=== PATIENT | male | born 1975 | race Caucasian/White ===

== ENCOUNTER 2017-05-03 09:52 | Emergency (ER) | payer BC ==
[~2017-05-03] VITALS: Ht 167.6 cm; Wt 93.0 kg
[2017-05-03 09:55] VITALS: Ht 167.6 cm; Wt 93.0 kg
--- NOTE | 2017-05-03 10:56 | RADRPT ---
PROCEDURE: XR Chest. CLINICAL INDICATION: chest pain TECHNIQUE: Single frontal view of the chest was obtained COMPARISON: None FINDINGS: The heart and mediastinum are within normal limits. The lungs are clear. There is no pleural effusion or pneumothorax. RPTAT: AA IMPRESSION: No acute disease. .Minh Chavez MD, Date Time Electronically viewed and signed by .Minh Chavez MD, on 05/03/2017 10:56 .S/
--- NOTE | 2017-05-03 11:57 | RADRPT ---
PROCEDURE: XR Ankle. CLINICAL INDICATION: Right ankle pain following injury TECHNIQUE: 3 views of the right ankle are available for review COMPARISON: None available FINDINGS: The osseous structures demonstrate normal alignment and mineralization. No acute fracture or disloc ation is seen. The ankle mortise is intact. No periostitis or osteochondral lesion is identified. No significant soft tissue abnormality is seen. IMPRESSION: Unremarkable right ankle x-ray series. RPTAT: HH .Cecile Nam MD, MD Date Time Electronically viewed and signed by .Cecile Nam MD, on 05/03/2017 11:57 .G/
[2017-05-03] MEDS ORDERED: IBUPROFEN 800 MG TAB PO STA (11:58)
[2017-05-03] MEDS ORDERED: IBUP-1542 PO (12:21)
--- NOTE | 2017-05-03 12:35 | ERD ---
ER Documentation Chief Complaint Date/Time DATE: 05/03/17 TIME: 12:33 Chief Complaint Complains of ankle pain after a fall HPI 41-year-old male presenting to the emergency department complaining of moderate achy right ankle pain status post level fall and inversion mechanism injury that occurred yesterday. Patient states that he had also landed on his right lower lip. He denies any chest pain or shortness of breath. He denies taking any medications for this ROS All systems reviewed and are negative except as per history of present illness. Medications Home Meds Active Scripts Ibuprofen* (Motrin*) 600 Mg Tab, 600 MG PO Q6H Y for PAIN AND OR ELEVATED TEMP, #30 TAB Prov:JATIN ORTIZ PA-C 05/03/17 Allergies Allergies: Coded Allergies: No Known Allergy (Unverified , 05/03/17) Physical Exam Vitals Vital Signs Date Time Temp Pulse Resp B/P Pulse Ox O2 Delivery O2 Flow Rate FiO2 05/03/17 09:55 98.4 70 20 122/76 97 Physical Exam Const: NAD Head: Atraumatic Eyes: Normal Conjunctiva ENT: Normal External Ears, Nose and Mouth. Neck: Full range of motion..~ No meningismus. Resp: Clear to auscultation bilaterally Cardio: Regular rate and rhythm, no murmurs Abd: Soft, non tender, non distended. Normal bowel sounds Skin: No petechiae or rashes Back: No midline or flank tenderness Ext: TTP on the right ankle, no swelling noted Neur: Awake and alert Psych: Normal Mood and Affect Results 24 hrs Current Medications Medications (Trade) Dose Ordered Sig/Alfredo Route PRN Reason Start Time Stop Time Status Last Admin Dose Admin Ibuprofen (Motrin) 800 mg ONCE STAT PO 05/03/17 11:58 05/03/17 12:00 DC 05/03/17 12:05 Procedures/MDM Is a 41-year-old male presenting to the emergency department complaining of right ankle pain status post ground level fall that occurred yesterday. Patient likely has an ankle sprain, there is no evidence of fracture dislocation. Patient had no neuro deficits. Patient was placed in Ankush bandage and was given crutches. Discussed to return to the ER for any worsening symptoms. He understands and agrees with this plan The ankle did not show fracture dislocation, chest x-ray did not show any evidence of infiltrates, pneumothorax pleural effusion or rib fracture Departure Diagnosis: Primary Impression: Ankle sprain Condition: Stable Patient Instructions: Treating Ankle Sprains, Self-Care for Strains and Sprains Additional Instructions: FOLLOW UP WITH YOUR PRIMARY CARE PHYSICIAN TOMORROW.Return to this facility if you are not improving as expected. Take all medicines as directed. Return to this facility if you are not improving as expected. JATIN ORTIZ PA-C May 03, 2017 12:35
[2017-05-03 12:57] VITALS: BP 121/70; PULSE 79; RESP 18; TEMP 98
== END 2017-05-03 12:58 | disposition home or self-care (01) ==
LOC: FTE 09:52
DX: S93.401A Sprain of unspecified ligament of right ankle, initial encounter (principal); R07.9 Chest pain, unspecified; W18.39XA Other fall on same level, initial encounter; Y92.9 Unspecified place or not applicable
CPT/HCPCS: 71010; 73610; 99284; Z7610